=== PATIENT | female | born 1950 | race Caucasian/White ===

== ENCOUNTER 2022-11-06 11:57 | Day surgery (SDC) | payer MEDICARE, SELFPAY ==
--- NOTE | 2022-11-05 11:50 | P.CONAN_ITS ---
Documented by User: Barbi Morgan NP 11/05/22 11:56 HPI - Anesthesia Eval Consult details Narrative: 72yo F for Upper Endoscopy and Colonoscopy Stable at 08/2022 cardiology appointment ASA/Watchman/Cryoablation for PAF PMFSH Past Medical History Medical History (Updated 11/06/22 @ 12:28 by Peggy Key, RN) Quintanilla esophagus Coronary artery disease Diabetes mellitus Elevated alkaline phosphatase level Elevated uric acid in blood Fatty liver GERD (gastroesophageal reflux disease) History of cardioversion History of OR (myocardial infarction) Hyperlipidemia Hypothyroidism Kidney symptom or sign CORRINA on CPAP Paroxysmal atrial fibrillation Presence of Watchman left atrial appendage closure device Restless leg syndrome Trigger finger Surgical History Surgical History H/O cardiac radiofrequency ablation H/O carpal tunnel repair H/O colonoscopy History of endoscopy History of varicose vein stripping Hx of CABG Hx of tonsillectomy Social History Social History Patient Tobacco Use Status: Former Tobacco user Quit Date: in her 40's Use of substances other than those prescribed or required for medical reasons: No Are you DNR?: No Advance Directives: No Advance Directives Information Provided: Yes Meds Allergies Allergy/AdvReac Type Severity Reaction Status Date / Time latex Allergy Unknown Verified 11/06/22 12:29 Penicillins [PCN] Allergy Unknown Verified 11/06/22 12:29 Home Medications Medication Instructions Recorded Confirmed Last Taken Type Centrum 1 tab PO USEASDIRECTD 11/05/22 11/05/22 Unknown History CoQ-10 1 cap PO USEASDIRECTD 11/05/22 11/05/22 Unknown History allopurinol 1 tab PO DAILY 11/05/22 11/05/22 Unknown History aspirin 1 tab PO DAILY 11/05/22 11/06/22 11/04/22 History atorvastatin 1 tab PO DAILY 11/05/22 11/05/22 Unknown History diltiazem HCl 1 cap PO BID 11/05/22 11/05/22 Unknown History furosemide 1 tab PO DAILY 11/05/22 11/05/22 Unknown History metoprolol succinate 1 cap PO DAILY 11/05/22 11/05/22 Unknown History nitroglycerin 1 tab sublingual USEASDIRECTD PRN 11/05/22 11/05/22 Unknown History Chest Pain pantoprazole 1 tab PO DAILY 11/05/22 11/05/22 Unknown History gthmwpp-eitl-rpyur-oreg-capryl 1 cap PO USEASDIRECTD 11/05/22 11/05/22 Unknown History Exam Exam Date and Time: November 05, 2022 1150 Narrative Narrative: EKG 02/2022 SB @ 50 FENG 01/2022 Nml LVEF Well-seated 24mm watchman. No thrombus. No evidence by color doppler flow in or out of the LA appendage. No interatrial shunt dected. Mild MR. Trace pericardial effusion. Assessment and Plan Assessment Anesthesia Assessment: Chart Reviewed Documented by User: Marie Clay MD 11/06/22 12:52 [facility] Past Medical History Medical History (Updated 11/06/22 @ 12:28 by Peggy Key, RN) Quintanilla esophagus Coronary artery disease Diabetes mellitus Elevated alkaline phosphatase level Elevated uric acid in blood Fatty liver GERD (gastroesophageal reflux disease) History of cardioversion History of OR (myocardial infarction) Hyperlipidemia Hypothyroidism Kidney symptom or sign CORRINA on CPAP Paroxysmal atrial fibrillation Presence of Watchman left atrial appendage closure device Restless leg syndrome Trigger finger Family History Family history of problems with anesthesia: No Surgical History Surgical History H/O cardiac radiofrequency ablation H/O carpal tunnel repair H/O colonoscopy History of endoscopy History of varicose vein stripping Hx of CABG Hx of tonsillectomy History of Problems with Anesthesia: No Social History Social History Patient Tobacco Use Status: Former Tobacco user Quit Date: in her 40's Use of substances other than those prescribed or required for medical reasons: No Are you DNR?: No Advance Directives: No Advance Directives Information Provided: Yes Meds Allergies Allergy/AdvReac Type Severity Reaction Status Date / Time latex Allergy Unknown Verified 11/06/22 12:29 Penicillins [PCN] Allergy Unknown Verified 11/06/22 12:29 Home Medications Medication Instructions Recorded Confirmed Last Taken Type Centrum 1 tab PO USEASDIRECTD 11/05/22 11/05/22 Unknown History CoQ-10 1 cap PO USEASDIRECTD 11/05/22 11/05/22 Unknown History allopurinol 1 tab PO DAILY 11/05/22 11/05/22 Unknown History aspirin 1 tab PO DAILY 11/05/22 11/06/22 11/04/22 History atorvastatin 1 tab PO DAILY 11/05/22 11/05/22 Unknown History diltiazem HCl 1 cap PO BID 11/05/22 11/05/22 Unknown History furosemide 1 tab PO DAILY 11/05/22 11/05/22 Unknown History metoprolol succinate 1 cap PO DAILY 11/05/22 11/05/22 Unknown History nitroglycerin 1 tab sublingual USEASDIRECTD PRN 11/05/22 11/05/22 Unknown H istory Chest Pain pantoprazole 1 tab PO DAILY 11/05/22 11/05/22 Unknown History zhfwqfi-hkvv-qhdkz-oreg-capryl 1 cap PO USEASDIRECTD 11/05/22 11/05/22 Unknown History Exam Airway Mallampati Class: III TM Dist: >3cm Neck ROM: Full Heart: rrr Lungs: cta Assessment and Plan Assessment Anesthesia Assessment: Anesthesia Plan Discussed Final Anesthetic Review Family History of Problems with Anesthesia: No History of Problems with Anesthesia: No NPO: Yes ASA Class: III Final Preanesthetic Review: No Changes in Pt Med Stat, Meds/Allgs Chart Reviewed and Consent Obtained/Reviewed Patient Risk: Intermediate Procedure Risk: Intermediate Anesthetic Plan Anesthetic Plan: MAC: Disposition: Standard PACU
[2022-11-06 12:30] VITALS: BMI 45.5
[2022-11-06 12:54] VITALS: BP 160/89; PULSE 82; RESP 17; TEMP 36.7; O2SAT 96
[2022-11-06] MEDS: Lactated Ringers 1,000 ML 100 ML IVCONT (12:55)
--- NOTE | 2022-11-06 13:06 | MHC.SHP ---
Pre-Procedural Eval Section A Date of Service: 11/06/22 The patient is an INPATIENT: No Changes since office visit: No Cold of Flu in the past 2 weeks, No New Medical Problems, No Changes in Medication and No Patient answered all questions The History & Physical has been completed within 30 days and I have reviewed it.: Yes Section B Chief Complaint: Screening Quintanilla's esophagus without dysplasia Allergies: Allergies Allergy/AdvReac Type Severity Reaction Status Date / Time latex Allergy Redness of Verified 11/06/22 12:57 Skin Penicillins [PCN] Allergy Hives Verified 11/06/22 12:57 Plan I have reviewed the history and physical and performed a pertinent physical examination on my patient. No changes have occurred unless specified. Time Spent With Patient Time: Total time managing care of this patient today ____ minutes.
[2022-11-06 13:49] VITALS: BP 92/48; PULSE 67; RESP 12; TEMP 37.4; O2SAT 95
--- NOTE | 2022-11-06 13:54 | P.BOP_ITS ---
Brief Operative Note Date of Service: 11/06/22 Pre-op diagnosis: Barretts, screening Post-op diagnosis: same Procedure: EGD colonoscopy Surgeon: Enrrique Hawkins Anesthesia: MAC Was an Assistant Activities Director used for this Procedure?: No Estimated blood loss (mL): 2 Tourniquet time (min): 0 Pathology: other Condition: stable Disposition: PACU
[2022-11-06 14:04] VITALS: BP 113/74; PULSE 74; RESP 16; TEMP 37.4; O2SAT 95
--- NOTE | 2022-11-07 00:19 | OP_ITS ---
SURGEON: Enrrique Hawkins MD INDICATIONS: 1. Quintnailla esophagus. 2. Colon cancer screening. PREOPERATIVE DIAGNOSIS: POSTOPERATIVE DIAGNOSIS: PROCEDURE PERFORMED: Upper endoscopy with biopsy, colonoscopy to the terminal ileum with biopsy, and snare polypectomy. ESTIMATED BLOOD LOSS: COMPLICATIONS: ANESTHESIA: ASSISTANTS: SPECIMENS: MEDICATIONS: Monitored anesthesia care. DESCRIPTION OF PROCEDURE: History and physical performed. The risks and benefits of the procedure were explained to the patient. Informed consent was obtained. The patient was placed in the left lateral decubitus position. The Olympus video gastroscope was introduced into the esophagus, stomach, and duodenum. Examination was performed and the scope was removed. She was repositioned for colonoscopy. A digital rectal exam was performed and was found to be normal. The Olympus pediatric video colonoscope was introduced into the rectum and advanced to the cecum without difficulty. The cecum was identified by transillumination, palpation, and identification of ileocecal valve. Examination was performed and the scope was removed. She tolerated both procedures well and was returned to recovery area in stable condition. The procedure was performed on 11/06/2022. FINDINGS: Upper endoscopy: Esophagus: The esophagus was normal. There was no esophagitis. There was an irregular EG junction. There were no raised lesions or ulcerated areas. Biopsies were obtained from the EG junction. Stomach: Stomach showed no evidence of masses, ulcers, or polyps. Duodenum: The bulb and 2nd portion were normal. Colonoscopy: The terminal ileum was normal. The visualized colonic mucosa was within normal limits without evidence of masses or ulcers. Two polyps were identified and removed. The first was located in the right colon and was removed with a biopsy forceps measuring less than 5 mm. The second was located at 50 cm and measured 8 mm. This was removed with a hot snare and recovered via suction. No other polyps were identified. There was mild sigmoid diverticulosis. Retroflexed examination showed some hypertrophic anal papillae and small internal hemorrhoids. IMPRESSION: 1. Quintanilla esophagus. 2. Colon polyps. RECOMMENDATION: Follow up the biopsy results. MD GERRY Moon/CHANTELLE / [id number]
== END 2022-11-06 14:21 | disposition home or self-care (01) ==
PROVIDERS: PCP Internal Medicine; Visit Provider Internal Medicine Gastroenterology
PROC: (CPT 45385; principal; 2022-11-06 13:30)
DX: Z12.11 Encounter for screening for malignant neoplasm of colon (principal); Z86.010 Personal history of colon polyps; D12.2 Benign neoplasm of ascending colon; D12.5 Benign neoplasm of sigmoid colon; K57.30 Diverticulosis of large intestine without perforation or abscess without bleeding; K62.89 Other specified diseases of anus and rectum; K64.8 Other hemorrhoids; K76.0 Fatty (change of) liver, not elsewhere classified; K82.4 Cholesterolosis of gallbladder; K22.70 Barrett's esophagus without dysplasia; I25.10 Atherosclerotic heart disease of native coronary artery without angina pectoris; I25.2 Old myocardial infarction; I10 Essential (primary) hypertension; Z95.1 Presence of aortocoronary bypass graft; Z95.818 Presence of other cardiac implants and grafts; E11.9 Type 2 diabetes mellitus without complications; E78.5 Hyperlipidemia, unspecified; E03.9 Hypothyroidism, unspecified; I48.0 Paroxysmal atrial fibrillation; G47.33 Obstructive sleep apnea (adult) (pediatric); Z79.82 Long term (current) use of aspirin; Z79.899 Other long term (current) drug therapy; Z99.89 Dependence on other enabling machines and devices; Z88.0 Allergy status to penicillin; Z91.040 Latex allergy status; Z87.891 Personal history of nicotine dependence
CPT/HCPCS: 45385; 45380; 43239; 88305; J2250